=== PATIENT | female | born 1950 | race Caucasian/White ===

== ENCOUNTER 2018-11-28 20:30 | Emergency (ER) | payer MEDICARE, BC ==
[~2018-11-28] VITALS: Ht 152.4 cm; Wt 69.4 kg
--- NOTE | 2018-11-28 21:05 | ED General ---
General Chief Complaint: General Problems/Pain Stated Complaint: LOW SODIUM Source of Information: Patient, Old Records, RN Notes Reviewed Exam Limitations: No Limitations History of Present Illness Date Seen by Provider: Nov 28, 2018 Time Seen by Provider: 21:02 Initial Comments Patient presents to the ED @ the direction of her orthopedic surgeon. Told her she needed to come in and get a bag of fluid. Patient recently had her knee replaced and apparently was hyponatremic while in the hospital so while being seen by the home health nurse today, he ordered a CBC and BMP to follow up on it and wound up calling her [place] p/ being notified of her Sodium being 124. Patient doesn't know what her levels were while hospitalized and whether it was worked up or not. Asymptomatic @ this time. Denies drinking excessive amounts of water. Not on any diuretics. No known fever. Timing/Duration: Other (unknown onset) Modifying Factors: improves with Other (none known) Associated Systoms: Denies Symptoms; No Headaches, No Nausea/Vomiting Allergies and Home Medications Allergies Coded Allergies: No Known Drug Allergies (Unverified , 11/28/18) Patient Home Medication List Home Medication List Reviewed: Yes Review of Systems Review of Systems Constitutional: see HPI Past [id number] Hx Patient Social History Alcohol Use: Denies Use Recreational Drug Use: No Type Used: Cigarettes 2nd Hand Smoke Exposure: Yes Recent Foreign Travel: No Contact w/Someone Who Travel: No Recent Hopitalizations: No Physical Abuse: No Sexual Abuse: No Mistreated: No Past Medical History Surgeries: Yes Gallbladder, Hysterectomy, Orthopedic Respiratory: No Cardiac: Yes Hypertension Neurological: No Genitourinary: No Gastrointestinal: No Musculoskeletal: No Endocrine: Yes Diabetes, Non-Insulin dep HEENT: No Cancer: No Psychosocial: No Integumentary: No Blood Disorders: No Physical Exam Vital Signs Vital Signs - First Documented 11/28/18 20:35 Temp 98.9 Pulse 118 Resp 18 B/P (MAP) 138/66 (90) Pulse Ox 98 O2 Delivery Room Air Capillary Refill : Height, Weight, BMI Height: '" Weight: lbs. oz. kg; BMI Method: General Appearance: No Apparent Distress, WD/WN Respiratory: No Respiratory Distress Cardiovascular: Tachycardia Rectal: Deferred Neurologic/Psychiatric: Alert, Oriented x3, No Motor/Sensory Deficits, Normal Mood/Affect Skin: Warm/Dry Progress/Results/Core Measures Suspected Sepsis SIRS Temperature: Pulse: Respiratory Rate: Blood Pressure / Mean: Laboratory Tests 11/28/18 20:45: Creatinine 0.65 Results/Orders Lab Results Laboratory Tests Test 11/28/18 20:45 11/28/18 21:17 Range/Units Sodium Level 122 *L 135-145 MMOL/L Potassium Level 4.5 3.6-5.0 MMOL/L Chloride Level 83 L 98-107 MMOL/L Carbon Dioxide Level 26 21-32 MMOL/L Anion Gap 13 5-14 MMOL/L Blood Urea Nitrogen 11 7-18 MG/DL Creatinine 0.65 0.60-1.30 MG/DL Estimat Glomerular Filtration Rate > 60 BUN/Creatinine Ratio 17 Glucose Level 140 H 70-105 MG/DL Calcium Level 9.1 8.5-10.1 MG/DL My Orders Orders - JUDI ROBRETS DO Basic Metabolic Panel (11/28/18 21:03) Ua Culture If Indicated (11/28/18 21:03) Ed Iv/Invasive Line Start (11/28/18 21:09) Ed Iv/Invasive Line Start (11/28/18 21:09) Ns Iv 1000 Ml (Sodium Chloride 0.9%) (11/28/18 21:09) Sodium Urine Random (11/28/18 21:43) Osmolality Serum (11/28/18 21:43) Vital Signs/I&O 11/28/18 11/28/18 20:35 23:48 Temp 98.9 Pulse 118 110 Resp 18 18 B/P (MAP) 138/66 (90) 137/88 (104) Pulse Ox 98 93 O2 Delivery Room Air Room Air 11/29/18 00:00 Intake Total 1000 ml Balance 1000 ml Capillary Refill : Progress Note : Progress Note Serum osmolality calculates out to around 255 which rises the suspicion of exceed fluid intake. Going to fluid restrict her and recheck a Sodium HEDY. Apparently not going to get her urine sodium back tonight. Asked her to check c/ her PCP in AM, 11/29, for results and possible further recommendations. Departure Impression Primary Impression: Hyponatremia Disposition: 01 HOME, SELF-CARE Condition: Stable Departure-Patient Inst. Decision time for Depature: 23:26 Referrals: KENNY WILSON MD (PCP) Primary Care Physician Patient Instructions: Hyponatremia (DC) Add. Discharge Instructions: All discharge instructions reviewed with patient and/or family. Voiced understanding. RESTRICT YOUR FREE WATER INTAKE TO 1/2 OF YOUR CURRENT DAILY INGESTION. CALL YOUR PCP TO CHECK ON THE RESULTS OF YOUR URINE SODIUM TEST AND FOR FURTHER RECOMMENDATIONS BASED ON IT. RECOMMEND RECHECKING YOUR SODIUM LEVEL IN THE NEXT COUPLE DAYS. RETURN TO THE ER IF YOUR START DEVELOPING ANY UNUSUAL SYMPTOMS, I.E. N/V, HEADACHE, ETC. JUDI ROBERTS DO Nov 28, 2018 21:05
[2018-11-28] MEDS ORDERED: NS IV 1000 ML 1,000 ML IV SCH (21:09)
[2018-11-28 21:26] LABS: BUN/CREATININE RATIO 17; CALCIUM 9.1 MG/DL (8.5-10.1); CARBON DIOXIDE 26 MMOL/L (21-32); CHLORIDE 83 MMOL/L (98-107); CREATININE SERUM 0.65 MG/DL (0.60-1.30); GFR ESTIMATED > 60; GLUCOSE 140 MG/DL (70-105); POTASSIUM 4.5 MMOL/L (3.6-5.0); SODIUM 122 MMOL/L (135-145)
[2018-11-28 23:48] VITALS: BP 137/88
== END 2018-11-28 23:45 | disposition home or self-care (01) ==
LOC: EDUNIT# 20:30 → ER FS 20:32
DX: E87.1 Hypo-osmolality and hyponatremia (principal); I10 Essential (primary) hypertension; E11.9 Type 2 diabetes mellitus without complications; Z90.710 Acquired absence of both cervix and uterus; Z77.22 Contact with and (suspected) exposure to environmental tobacco smoke (acute) (chronic); Z96.659 Presence of unspecified artificial knee joint
CPT/HCPCS: 36415; 80048; 83930; 84300

== ENCOUNTER → 2018-11-28 | Outpatient (CLI) | payer MEDICARE ==
[2018-11-28 17:07] LABS: HEMATOCRIT 33 % (35-52); HEMOGLOBIN 11.8 G/DL (11.5-16.0); MEAN CORPUSCULAR HEMOGLOBIN 33 PG (25-34); MEAN CORPUSCULAR VOLUME 94 FL (80-99)
[2018-11-28 17:08] LABS: BASOPHILS # (AUTO) 0.1 10^3/uL (0.0-0.1); BASOPHILS % (AUTO) 1 % (0-10); EOSINOPHILS # (AUTO) 0.2 10^3/uL (0.0-0.3); EOSINOPHILS % (AUTO) 3 % (0-10); LYMPHOCYTES # (AUTO) 2.2 X 10^3 (1.0-4.0); LYMPHOCYTES % (AUTO) 28 % (12-44); MEAN CORPUSCULAR HGB CONC 36 G/DL (32-36); MEAN PLATELET VOLUME 9.2 FL (7.4-10.4); MONOCYTES % (AUTO) 12 % (0-12); NEUTROPHILS # (AUTO) 4.4 X 10^3 (1.8-7.8); NEUTROPHILS % (AUTO) 56 % (42-75); PLATELET COUNT 344 10^3/uL (130-400); RED CELL DISTRIBUTION WIDTH 12.3 % (10.0-14.5)
[2018-11-28 18:48] LABS: CARBON DIOXIDE 26 MMOL/L (21-32); CHLORIDE 82 MMOL/L (98-107); POTASSIUM 4.7 MMOL/L (3.6-5.0); SODIUM 124 MMOL/L (135-145)
[2018-11-28 18:49] LABS: BUN/CREATININE RATIO 21; CALCIUM 9.5 MG/DL (8.5-10.1); CREATININE SERUM 0.57 MG/DL (0.60-1.30); GFR ESTIMATED > 60; GLUCOSE 96 MG/DL (70-105)
== END ==
LOC: LAB FS 16:51
PROVIDERS: ATTEND Orthopaedic Surgery
DX: Z01.812 Encounter for preprocedural laboratory examination (principal)
CPT/HCPCS: 36415; 80048; 85025

== ENCOUNTER → 2018-12-01 | Outpatient (CLI) | payer MEDICARE, BC ==
[2018-12-01 21:35] LABS: CHLORIDE 93 MMOL/L (98-107); SODIUM 132 MMOL/L (135-145)
[2018-12-01 21:36] LABS: BUN/CREATININE RATIO 14; CALCIUM 9.7 MG/DL (8.5-10.1); CARBON DIOXIDE 28 MMOL/L (21-32); CREATININE SERUM 0.57 MG/DL (0.60-1.30); GFR ESTIMATED > 60; GLUCOSE 119 MG/DL (70-105); POTASSIUM 5.4 MMOL/L (3.6-5.0)
== END ==
LOC: LAB FS 20:21
PROVIDERS: ATTEND Orthopaedic Surgery
DX: E87.1 Hypo-osmolality and hyponatremia (principal)
CPT/HCPCS: 36415; 80048